=== PATIENT | female | born 1980 | race Caucasian/White ===

== ENCOUNTER 2018-03-26 19:21 | Observation (INO) | payer OTHER ==
[~2018-03-26] VITALS: Ht 160 cm; Wt 73.0 kg
[2018-03-26] MEDS ORDERED: RINGERS SOLUTION,LACTATED 1,000 ML IV ONE (19:31)
[2018-03-26] MEDS ORDERED: OXYTOCIN 30 UNITS/LACT RINGERS 500 ML IV ONE (19:31)
[2018-03-26] MEDS ORDERED: METOCLOPRAMIDE HCL 5 MG/ML 2 ML VIAL IVP PRN (19:45)
[2018-03-26] MEDS ORDERED: LIDOCAINE/PF 1% 30 ML VIAL INJ PRN (19:45)
[2018-03-26] MEDS ORDERED: CITRIC ACID/SODIUM CITRATE 30 ML SOLUTION UDCUP PO PRN (19:45)
[2018-03-26 20:14] LABS: BASOPHILS % (AUTO) 0.4 % (0.0-2.0); EOSINOPHILS % (AUTO) 2.1 % (1.0-6.0); HEMOGLOBIN 11.4 g/dL (12.0-16.0); LYMPHOCYTES % (AUTO) 22.1 % (22.0-44.0); MEAN CORPUSCULAR HEMOGLOBIN 28.6 pg (26.0-34.0); MEAN CORPUSCULAR HGB CONC 33.6 G/dL (31.0-37.0); MEAN CORPUSCULAR VOLUME 85 fL (80-100); MONOCYTES # (AUTO) 0.7 K/uL (0.1-1.0); MONOCYTES % (AUTO) 7.7 % (2.0-9.0); NEUTROPHILS # (AUTO) 6.2 K/uL (1.8-7.7); NEUTROPHILS % (AUTO) 67.7 % (40.0-70.0); PLATELET COUNT (AUTO) 108 K/uL (150-450); RED BLOOD CELL COUNT(AUTO) 3.98 MIL/uL (4.00-5.20); RED CELL DISTRIBUTION WIDTH 15.1 % (11.5-14.5)
[2018-03-26 20:28] VITALS: BP 96/52
[2018-03-26] MEDS: MISOPROSTOL 25 MCG TABLET PO SCH (21:29)
[2018-03-26] MEDS: RINGERS SOLUTION,LACTATED 1,000 ML IV SCH (21:30)
[2018-03-27] MEDS: MISOPROSTOL 25 MCG TABLET PO SCH ×2 (01:24→05:43)
[2018-03-27] MEDS: RINGERS SOLUTION,LACTATED 1,000 ML IV SCH (05:44)
[2018-03-27] MEDS ORDERED: MISOPROSTOL 25 MCG TABLET PO ONE (11:45)
== END 2018-03-27 17:01 | disposition home or self-care (01) ==
LOC: 4S 19:21 → OBSVTOIN 19:21 → INTOOBSV 19:21 → PREOBSVTOIN 04-12 19:41
PROVIDERS: ADMIT Obstetrics & Gynecology; ATTEND Obstetrics & Gynecology
DX: O09.523 Supervision of elderly multigravida, third trimester (principal); Z3A.39 39 weeks gestation of pregnancy
CPT/HCPCS: 36415; 81002; 85025; 86850; 86870; 86900; 86901; G0378 ×2; J7120

== ENCOUNTER 2018-03-29 07:55 | Inpatient (IN) | payer OTHER ==
[~2018-03-29] VITALS: Ht 160 cm; Wt 73.5 kg
[2018-03-29] MEDS ORDERED: OXYTOCIN 30 UNITS/LACT RINGERS 500 ML IV ONE (08:11)
[2018-03-29] MEDS ORDERED: RINGERS SOLUTION,LACTATED 1,000 ML IV ONE (08:11)
[2018-03-29] MEDS ORDERED: LIDOCAINE/PF 1% 30 ML VIAL INJ PRN (08:15)
[2018-03-29] MEDS ORDERED: METOCLOPRAMIDE HCL 5 MG/ML 2 ML VIAL IVP PRN (08:15)
[2018-03-29] MEDS ORDERED: CITRIC ACID/SODIUM CITRATE 30 ML SOLUTION UDCUP PO PRN (08:15)
[2018-03-29 08:42] LABS: BASOPHILS % (AUTO) 0.5 % (0.0-2.0); EOSINOPHILS % (AUTO) 1.6 % (1.0-6.0); HEMATOCRIT 36.2 % (36-46); LYMPHOCYTES # (AUTO) 1.5 K/uL (1.0-4.8); LYMPHOCYTES % (AUTO) 18.5 % (22.0-44.0); MEAN CORPUSCULAR HEMOGLOBIN 28.3 pg (26.0-34.0); MEAN CORPUSCULAR HGB CONC 33.2 G/dL (31.0-37.0); MEAN CORPUSCULAR VOLUME 85 fL (80-100); MONOCYTES # (AUTO) 0.6 K/uL (0.1-1.0); MONOCYTES % (AUTO) 7.2 % (2.0-9.0); NEUTROPHILS # (AUTO) 5.7 K/uL (1.8-7.7); NEUTROPHILS % (AUTO) 72.2 % (40.0-70.0); PLATELET COUNT (AUTO)-OB 110 K/uL (150-450); RED BLOOD CELL COUNT(AUTO) 4.25 MIL/uL (4.00-5.20); RED CELL DISTRIBUTION WIDTH 15.1 % (11.5-14.5)
[2018-03-29] MEDS: RINGERS SOLUTION,LACTATED 1,000 ML IV SCH ×2 (09:24→15:26)
[2018-03-29] MEDS: MISOPROSTOL 25 MCG TABLET PO SCH ×2 (09:41→13:40)
[2018-03-29 10:26] VITALS: BP 110/66
[2018-03-29] MEDS ORDERED: MISOPROSTOL 25 MCG TABLET PO SCH (12:00)
[2018-03-29] MEDS ORDERED: OXYTOCIN 30 UNITS/LACT RINGERS 500 ML IV PRN (17:20)
[2018-03-29] MEDS ORDERED: AMPICILLIN SODIUM 2 GM/NS 100 ML IV ONE (17:30)
[2018-03-29] MEDS: AMPICILLIN SODIUM 1 GM/NS 50 ML IV SCH (21:50)
[2018-03-30] MEDS: AMPICILLIN SODIUM 1 GM/NS 50 ML IV SCH ×2 (01:49→05:53)
[2018-03-30] MEDS ORDERED: BUTORPHANOL TARTRATE 2 MG/ML VIAL IVP PRN (02:00)
[2018-03-30] MEDS ORDERED: ROPIVACAINE HCL/PF 0.2% 100 ML ED ONE (03:02)
[2018-03-30] MEDS ORDERED: LIDOCAINE/PF 2% 5 ML VIAL ONE (03:02)
[2018-03-30] MEDS: RINGERS SOLUTION,LACTATED 1,000 ML IV SCH ×2 (03:21→08:32)
[2018-03-30] MEDS ORDERED: NALBUPHINE HCL 10 MG/ML VIAL IVP PRN (03:30)
[2018-03-30] MEDS ORDERED: ROPIVACAINE HCL/PF 0.2% 100 ML ED PRN (03:30)
[2018-03-30] MEDS ORDERED: ONDANSETRON HCL 4 MG/2 ML VIAL IVP PRN (03:30)
[2018-03-30] MEDS ORDERED: DiphenhydrAMINE HCL 50 MG/ML VIAL IVP PRN (03:30)
[2018-03-30] MEDS ORDERED: OXYTOCIN 20 UNITS/LACT RINGERS 1,000 ML IV ONE (10:11)
[2018-03-30] MEDS ORDERED: OXYTOCIN 20 UNITS/LACT RINGERS 1,000 ML IV SCH (10:59)
[2018-03-30] MEDS ORDERED: LANOLIN 7 GM OINTMENT TP PRN (11:00)
[2018-03-30] MEDS ORDERED: MEASLES/MUMPS/RUBELLA VACCINE, LIVE 0.5 ML/VIAL SQ ONE (11:00)
[2018-03-30] MEDS ORDERED: GLYCERIN/WITCH HAZEL LEAF 40 PADS JAR TP PRN (11:00)
[2018-03-30] MEDS ORDERED: ACETAMINOPHEN/CODEINE 300-30 MG TABLET PO PRN (11:00)
[2018-03-30] MEDS ORDERED: BENZOCAINE 20%/MENTHOL 56 GM SPRAY CANISTER TP PRN (11:00)
[2018-03-30] MEDS: IBUPROFEN 600 MG TABLET PO PRN (19:26)
[2018-03-30] MEDS: MAGNESIUM HYDROXIDE SUSPENSION 30 ML UDCUP PO PRN (21:11)
[2018-03-30] MEDS: SENNA/DOCUSATE SODIUM 8.6-50 MG TABLET PO PRN (21:11)
[2018-03-30 23:03] VITALS: BP 97/54
[2018-03-31 06:05] LABS: BASOPHILS % (AUTO) 0.2 % (0.0-2.0); HEMATOCRIT 27.5 % (36-46); HEMOGLOBIN 9.1 g/dL (12.0-16.0); LYMPHOCYTES % (AUTO) 13.8 % (22.0-44.0); MEAN CORPUSCULAR HEMOGLOBIN 28.2 pg (26.0-34.0); MEAN CORPUSCULAR VOLUME 86 fL (80-100); MONOCYTES # (AUTO) 0.9 K/uL (0.1-1.0); MONOCYTES % (AUTO) 6.4 % (2.0-9.0); NEUTROPHILS # (AUTO) 11.4 K/uL (1.8-7.7); NEUTROPHILS % (AUTO) 78.6 % (40.0-70.0); RED BLOOD CELL COUNT(AUTO) 3.22 MIL/uL (4.00-5.20); RED CELL DISTRIBUTION WIDTH 15.2 % (11.5-14.5)
[2018-03-31] MEDS: IBUPROFEN 600 MG TABLET PO PRN (06:21)
[2018-03-31 07:03] LABS: PLATELET COUNT (AUTO)-OB 84 K/uL (150-450)
[2018-03-31 07:41] LABS: PLATELET MORPHOLOGY COMMENT LARGE PLTS PRESENT
[2018-03-31] MEDS ORDERED: SENNA/DOCUSATE SODIUM 8.6-50 MG TABLET PO ONE (09:00)
[2018-03-31] MEDS: SENNA/DOCUSATE SODIUM 8.6-50 MG TABLET PO PRN (09:37)
[2018-03-31] MEDS: MAGNESIUM HYDROXIDE SUSPENSION 30 ML UDCUP PO PRN (09:38)
[2018-03-31 09:40] LABS: BASOPHILS % (AUTO) 0.3 % (0.0-2.0); EOSINOPHILS % (AUTO) 0.9 % (1.0-6.0); HEMATOCRIT 31.2 % (36-46); HEMOGLOBIN 10.3 g/dL (12.0-16.0); LYMPHOCYTES # (AUTO) 1.6 K/uL (1.0-4.8); LYMPHOCYTES % (AUTO) 10.9 % (22.0-44.0); MEAN CORPUSCULAR HEMOGLOBIN 28.4 pg (26.0-34.0); MEAN CORPUSCULAR VOLUME 86 fL (80-100); MONOCYTES # (AUTO) 0.7 K/uL (0.1-1.0); MONOCYTES % (AUTO) 4.9 % (2.0-9.0); NEUTROPHILS # (AUTO) 12.5 K/uL (1.8-7.7); PLATELET COUNT (AUTO)-OB 106 K/uL (150-450); RED BLOOD CELL COUNT(AUTO) 3.62 MIL/uL (4.00-5.20); RED CELL DISTRIBUTION WIDTH 15.3 % (11.5-14.5)
[2018-03-31] MEDS ORDERED: IBUP-2071 PO (10:06)
[2018-03-31] MEDS ORDERED: FERR-89 PO (10:10)
== END 2018-03-31 12:55 | disposition home or self-care (01) | DRG 807 ==
LOC: OBSVTOIN 07:55 → 4S 07:55
PROVIDERS: ADMIT Obstetrics & Gynecology; ATTEND Obstetrics & Gynecology
PROC: 10E0XZZ Delivery of Products of Conception, External Approach (ICD-10-PCS; principal; 2018-03-30)
PROC: 0KQM0ZZ Repair Perineum Muscle, Open Approach (ICD-10-PCS; 2018-03-30)
PROC: 3E033VJ Introduction of Other Hormone into Peripheral Vein, Percutaneous Approach (ICD-10-PCS; 2018-03-30)
PROC: 3E0R3BZ Introduction of Anesthetic Agent into Spinal Canal, Percutaneous Approach (ICD-10-PCS; 2018-03-30)
PROC: 00HU33Z Insertion of Infusion Device into Spinal Canal, Percutaneous Approach (ICD-10-PCS; 2018-03-30)
DX: O69.81X0 Labor and delivery complicated by cord around neck, without compression, not applicable or unspecified (principal); Z37.0 Single live birth; O70.1 Second degree perineal laceration during delivery; Z3A.39 39 weeks gestation of pregnancy
CPT/HCPCS: 85461; 86850; 86870; 86900; 86901; J0290; J2590; J2795; J3490; J7120